=== PATIENT | female | born 1930 | race Caucasian/White ===

== ENCOUNTER 2016-10-01 09:16 | Inpatient (IN) | payer OTHER, MEDICARE ==
[~2016-10-01] VITALS: Ht 162.6 cm; Wt 69.2 kg
--- NOTE | 2016-10-01 10:14 | DIAGNOSTIC IMAGING REPORT ---
PROCEDURE: XR CHEST 1 VIEW INDICATION: Possible CVA. TECHNIQUE: Portable AP view 0950 hours. Compared to chest x-ray on 11/07/2012. COMPARISON: None. FINDINGS: Allowing for overlying wires and electrodes, lungs are clear. Mild apical pleural scarring is unchanged. Heart and mediastinum are normal. Mild degenerative change of the thoracic spine. IMPRESSION: 1. Negative chest.
--- NOTE | 2016-10-01 10:22 | DIAGNOSTIC IMAGING REPORT ---
PROCEDURE: CT HEAD WITHOUT CONTRAST INDICATION: Code stroke. Confusion. TECHNIQUE: Noncontrast axial images with sagittal and coronal reformations. COMPARISON: None. FINDINGS: There are moderate old small vessel changes white matter signal hemispheres with a 1.8 cm old infarct in the right basal ganglia. There is no evidence an acute process or hemorrhage. There are marked calcifications of the right vertebral artery with moderate calcifications of the cavernous internal carotid arteries. Sinuses and mastoids are normal. IMPRESSION: 1. 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 2. Marked right vertebral and moderate carotid calcifications. 3. No evidence of acute process or hemorrhage. 4. Findings discussed with Dr. Swapnil Lombardo at [address] scans at this facility use dose modulation, iterative reconstruction, and/or weight-based dosing when appropriate to reduce radiation dose to as low as reasonably achievable.
--- NOTE | 2016-10-01 11:21 | ED ORDER SUMMARY ---
..... Patient: RAUDEL VICTORIA OrderSheet Formerly [facility] VisitID: [id number] [place] [address] 86y, F Registration Date/Time: 10/01/2016 ORDER SHEET Weight: 74.8 kg (measured) Allergies: Codeine, Novocaine/epedephrine, Sulfa Antibiotics GENERAL ORDERS: Chest 1V Urgent (09:10/01/2016 Rajeev Tristan) (Ack 9:36 LNations ER Tech1) (9:49 LNations ER Tech1) CT Head wo Cont Urgent (:10/01/2016 Rajeev Tristan) (9:33 RFay) Scrap Metal Collector (Continuous) (stroke) (:10/01/2016 Rajeev Tristan) (Ack 9:36 LNations ER Tech1) (9:48 LNations ER Tech1) Stroke Panel Stat (:10/01/2016 Rajeev Tristan) (Ack 9:36 LNations ER Tech1) (9:49 LNations ER Tech1) EKG - ER Stat (:10/01/2016 Rajeev Trsitan) (Ack 9:36 LNations ER Tech1) (9:48 LNations ER Tech1) POC Glucose (:10/01/2016 Rajeev Tristan) (Ack 9:36 LNations ER Tech1) (9:48 LNations ER Tech1) UA-Culture if indicated Urgent (:10/01/2016 Rajeev Tristan) (Ack 9:36 LNations ER Tech1) (10:37 HOShaughnessy R.N.) MEDICATION ORDERS: Aspirin [place] 300 mg (NOW) (11:29 10/01/2016 Rajeev Tristan) (11:45 HOShaughnessy R.N.) Aspirin PO 324 mg (NOW) (11:43 10/01/2016 HOShaughnessy R.N. verbal order read back to Rajeev Tristan) (11:44 HOShaughnessy R.N.) IV FLUIDS: IV Saline Lock (09:10/01/2016 Rajeev Tristan) (9:39 HOShaughnessy R.N.) Ceftriaxone IV 1 gm/50mL (NOW) (11:17 10/01/2016 Rajeev Tristan) (11:34 Daya Agarwal) ORDER SHEET NOTES: [Electronically signed by Jose Luis Monge R.N. (13:40 10/01/2016)] [Electronically signed by Swapnil Lombardo Dr. (22:37 10/04/2016)] [Electronically locked/signed by Jose Luis Monge R.N. (13:40 10/01/2016)]
--- NOTE | 2016-10-01 11:21 | ED NURSING NOTES ---
Clinical Report - Nurses [facility] [address] [place] [address] 10/01/2016 9:17 Patient: RAUDEL VICTORIA TRIAGE Triage time 0913 AM. Chief Complaint: WEAKNESS, IMPAIRED SPEECH and FACIAL DROOP. --09:22 Jose Luis Monge R.N. 09:19 10/01/16. BP: 180/68. HR: 95. RR: 16. O2 saturation: 95%. --09:22 Jose Luis Monge R.N. 09:39 10/01/16. BP: 149/80. HR: 90. RR: 14. O2 saturation: 97%. Temp: 98 F (oral). Pain level now: 0/10. --09:39 Jose Luis Monge R.N. Weight: 74.8 kg measured. --09:20 Jose Luis Monge R.N.. Height/Length: 62 inches Per Patient. BMI: 30.2. --13:38 Jose Luis Monge R.N. Medications Amlodipine Besy-Benazepril HCl Oral (Capsule 5-10 mg) 1 capsule, daily. Atorvastatin Calcium Oral 20 mg, daily. Losartan Potassium Oral (pt unsure of dose ). Metoprolol Tartrate Oral (Tablet 50 mg) 1-1/2 tablets, daily . --09:20 Jose Luis Monge R.N. Triamterene-HCTZ Oral (Tablet 37.5-25 mg) 1 tablet, daily . --09:20 Jose Luis Monge R.N. LORazepam Oral. --10:39 Jose Luis Monge R.N. CeleXA Oral. --10:39 Jose Luis Monge R.N. Allergies Codeine. Novocaine/epedephrine. Sulfa Antibiotics. --09:20 Jose Luis Monge R.N. History Arrived by EMS. Historian: EMS. This started last seen normal at 0300. Patient was last known well (0300 AM). ( Patient presents to the ED with symptoms of left sided weakness, left sided facial droop, and impaired speech.). She has had difficulty with speech, trouble walking and weakness. Treatment WIRE BRUSH MAKER: None. PAST MEDICAL HX: A single TIA. --:22 Jose Luis Monge R.N. NUTRITIONAL RISK ASSESSMENT: The nutritional risk assessment revealed no deficiencies. FUNCTIONAL ASSESSMENT: Functional assessment: no impairments noted. Functional assessment performed: independent with the activities of daily living; has aphasia- this communication barrier is a new problem; uses walker- this mobility impairment is an ongoing problem. LEARNING NEEDS ASSESSMENT: The learning needs assessment revealed no barriers. FALL RISK ASSESSMENT: Fall risk assessment completed. Risk factors identified include dizziness and patient age greater than 65 years and impairment of mobility and cognition. Fall interventions initiated. Side rails up x2. Brakes on Bed in low position. Patient visible from nurses' station and identified as a fall risk by chart flagged. Call light in reach of patient. Instructed not to get up without assistance. SKIN INTEGRITY ASSESSMENT: Skin integrity risk assessment completed. No skin integrity risk identified. --09:41 Jose Luis Monge R.N. PROBLEMS: UTI - Urinary Tract Infection. Anxiety Reaction. LNMP - Last Normal Menstrual Period. Hypercholesterolemia. Cancer. Intervertebral Disc Disease. COPD - Chronic Obstructive Pulmonary Disease. Sleep Apnea. GI Bleeding. Arthritis. Back Pain. TIA - Transient Ischemic Attack. Hypertension. Immunizations. --:20 Jose Luis Monge R.N. ADDITIONAL SURGERIES: Appendectomy. Carotid Surgery. Hysterectomy. Knee Surgery. Lung Surgery. Mastoidectomy. Tonsillectomy. --:20 Jose Luis Monge R.N. Interventions Finger stick glucose: 120 mg/dL. --:22 Jose Luis Monge R.N. ID band on patient. --09:39 Jose Luis Monge R.N. PHYSICAL ASSESSMENT To room via stretcher. GENERAL / NEURO / PSYCH: Oriented X 4. Appears anxious. [place] Coma Scale: 15- eyes open spontaneously (4); best verbal response- oriented x 4 (5); best motor response- obeys commands (6). Expressive aphasia. Mood/affect normal. Moves all extremities equally. No motor deficit. No sensory deficit. HEENT: No facial asymmetry noted. Pupils equal, round and reactive to light. EOM intact. Pharynx within normal limits. RESPIRATORY: Breath sounds within normal limits. Respirations not labored. CVS: Normal sinus rhythm noted. Capillary refill less than 2 seconds. SKIN: Skin is intact, warm and dry. --09:41 Jose Luis Monge R.N. Baseline functional status: usually alert, oriented x4 and cooperative. Verbal response: usually clear and appropriate. Motor response: usually steady gait and moves all extremities equally --09:42 Jose Luis Monge R.N. GENERAL / NEURO / PSYCH: NIH Stroke Scale: score 1. Performed at 09:42. Level of Consciousness: alert (0). LOC Questions: both (0). LOC Commands: both (0). Best gaze: normal (0). Visual field loss: none (0). Facial palsy: normal (0). Motor arm: no drift right arm (0) and no drift left arm (0). Motor leg: no drift right leg (0) and no drift left leg (0). Limb ataxia: none (0). Sensory loss: none (0). Aphasia: mild to moderate (1). Dysarthria: normal (0). Extinction and inattention: none (0). --09:42 Jose Luis Monge R.N. GENERAL / NEURO / PSYCH: Awake. Oriented X 4. Alert. Appears in no acute distress. [place] Coma Scale: 15- eyes open spontaneously (4); best verbal response- oriented x 4 (5); best motor response- obeys commands (6). Speech normal. Mood/affect normal. Moves all extremities equally. No motor deficit. No sensory deficit. NIH Stroke Scale: score 2. Level of Consciousness: alert (0). LOC Questions: both (0). LOC Commands: both (0). Best gaze: normal (0). Visual field loss: partial hemianopsia (1). Facial palsy: normal (0). Motor arm: no drift right arm (0) and no drift left arm (0). Motor leg: no drift right leg (0) and no drift left leg (0). Limb ataxia: none (0). Sensory loss: none (0). Aphasia: mild to moderate (1). Dysarthria: normal (0). Extinction and inattention: none (0). --11:47 Jose Luis Monge R.N. GENERAL / NEURO / PSYCH: Awake. Oriented X 4. Alert. Appears in no acute distress. Speech normal. Mood/affect normal. NIH Stroke Scale: score 1. Level of Consciousness: alert (0). LOC Questions: both (0). LOC Commands: both (0). Best gaze: normal (0). Visual field loss: none (0). Facial palsy: normal (0). Motor arm: no drift right arm (0) and no drift left arm (0). Motor leg: no drift right leg (0) and no drift left leg (0). Limb ataxia: none (0). Sensory loss: none (0). Aphasia: mild to moderate (1). Dysarthria: normal (0). Extinction and inattention: none (0). --13:14 Jose Luis Monge R.N. GENERAL / NEURO / PSYCH: Moves all extremities equally. No motor deficit. No sensory deficit. --13:14 Jose Luis Monge R.N. NURSING PROGRESS NOTES Patient transported to CT by stretcher with tech. ([id number]). --09:22 Jose Luis Monge R.N. 09:38 10/01/2016 Site #1 started via IV in the left forearm with an 18g angiocath; one attempt. Blood drawn: rainbow set. Saline lock flushed with saline. --09:39 Jose Luis Monge R.N. EKG time: (0943). EKG was ordered, performed by a tech and shown to the ED physician. --09:50 Niru Hernández ER Tech1 Finger stick glucose: 97; ordered; performed. --09:50 Niru Hernández ER Tech1 ( assisted pt. to restroom with walker. Pt. able to ambulate with assistance.). --11:18 Niru Hernández ER Tech1 11:34 10/01/2016 Started 1 gm of Ceftriaxone IVPB in bag #1 50 mL; at 100 mL/hr over 30 minute(s) via site #1 via IV pump. Allergies verified and confirmed 5 rights. IV patency established. IV site checked: no pain, redness, or swelling. IV flushed thoroughly pre- and post-medication administration. --11:34 Jose Luis Monge R.N. 11:35 10/01/16. BP: 132/68. HR: 87. RR: 16. O2 saturation: 99%. Temp: 98.6 F. Pain level now 0/10. --11:37 Jose Luis Monge R.N. The plan of care for this patient has been created. Monitoring of patient in place. Swallow screen: no dysphagia risk factors noted, patient sat at 90 degrees, 30 mL water given and a cracker was given. Passed swallow screen: no problems observed. Head of bed elevated. Reassurance given. The patient is calm and resting quietly. Overall patient status is improved- she states feels better. GENERAL / NEURO / PSYCH: Alert. Oriented X 4. Affect appears normal. HEENT: Pupils equal, round and reactive to light. RESPIRATORY: No respiratory distress. SKIN: Skin is warm and dry. Call light placed in reach. Side rails up x 1. Bed placed in lowest position. Brakes of bed on. --11:37 Jose Luis Monge R.N. 11:44 10/01/2016 Aspirin PO Tablets 324 mg given. Allergies verified and confirmed 5 rights. --11:44 Jose Luis Monge R.N. 11:45 10/01/2016 Aspirin [place] 300 mg (NOW) was refused by patient because of preference for a different route. Jose Luis Monge --11:45 Jose Luis Monge R.N. 13:39 10/01/2016 Ceftriaxone IVPB Discontinued: bag #1 completed. Total amount infused: 50 mL. IV patency established. IV site checked: no pain, redness, or swelling. IV flushed thoroughly. --13:39 Jose Luis Monge R.N. DISPOSITION / DISCHARGE Admitted. --13:13 Jose Luis Monge R.N. 13:13 10/01/16. BP: 114/77. HR: 95. RR: 16. O2 saturation: 100%. Temp: 98.5 F (oral). Pain level now: 0/10. --13:13 Jose Luis Monge R.N. The goals identified in the patient's plan of care were met. --13:13 Jose Luis Monge R.N. Locked/Released at 10/01/2016 13:40 by Jose Luis Monge R.N.
--- NOTE | 2016-10-01 11:21 | ED ORDER SUMMARY ---
..... Patient: RAUDEL VICTORIA OrderSheet [facility] VisitID: [id number] [place] [address] 86y, F Registration Date/Time: 10/01/2016 ORDER SHEET Weight: 74.8 kg (measured) Allergies: Codeine, Novocaine/epedephrine, Sulfa Antibiotics GENERAL ORDERS: Chest 1V Urgent (09:10/01/2016 Rajeev Tristan) (Ack 9:36 LNations ER Tech1) (9:49 LNations ER Tech1) CT Head wo Cont Urgent (:10/01/2016 Rajeev Tristan) (9:33 RFay) Hourly Caregiver (Continuous) (stroke) (:10/01/2016 Rajeev Tristan) (Ack 9:36 LNations ER Tech1) (9:48 LNations ER Tech1) Stroke Panel Stat (:10/01/2016 Rajeev Tristan) (Ack 9:36 LNations ER Tech1) (9:49 LNations ER Tech1) EKG - ER Stat (:10/01/2016 Rajeev Tristan) (Ack 9:36 LNations ER Tech1) (9:48 LNations ER Tech1) POC Glucose (:10/01/2016 Rajeev Tristan) (Ack 9:36 LNations ER Tech1) (9:48 LNations ER Tech1) UA-Culture if indicated Urgent (:10/01/2016 Rajeev Tristan) (Ack 9:36 LNations ER Tech1) (10:37 HOShaughnessy R.N.) MEDICATION ORDERS: Aspirin [place] 300 mg (NOW) (11:29 10/01/2016 Rajeev Tristan) (11:45 HOShaughnessy R.N.) Aspirin PO 324 mg (NOW) (11:43 10/01/2016 HOShaughnessy R.N. verbal order read back to Rajeev Tristan) (11:44 HOShaughnessy R.N.) IV FLUIDS: IV Saline Lock (09:10/01/2016 Rajeev Tristan) (9:39 HOShaughnessy R.N.) Ceftriaxone IV 1 gm/50mL (NOW) (11:17 10/01/2016 Rajeev Tristan) (11:34 Daya Agarwal) ORDER SHEET NOTES: [Electronically signed by Jose Luis Monge R.N. (13:40 10/01/2016)] [Electronically signed by Swapnil Lombardo Dr. (22:37 10/04/2016)] [Electronically locked/signed by Jose Luis Monge R.N. (13:40 10/01/2016)]
--- NOTE | 2016-10-01 11:21 | ED CLINICAL REPORT ---
Clinical Report - Physicians/Mid Levels [facility] [address] [place] [address] 10/01/2016 9:17 Patient: RAUDEL VICTORIA Time Seen: 0915. Arrived- By ambulance. Historian- patient and EMS personnel. HISTORY OF PRESENT ILLNESS Chief Complaint: WEAKNESS, FACIAL DROOP and IMPAIRED SPEECH. This started today, patient was last known well (329) and is still present but is improving. It was abrupt in onset and has been constant but is not gone now. The patient has had weakness. She has had difficulty with speech. At its maximum deficit described as moderate. When seen in the E.D., deficit described as mild. The patient has had altered mental status. Usually is alert and oriented X3 and has normal mobility. Similar symptoms previously: None. Recent medical care: Not recently seen/assessed. REVIEW OF SYSTEMS All systems otherwise negative, except as recorded above. PAST HISTORY Stroke. SOCIAL HISTORY Never smoker. No alcohol use or drug use. Is a local resident. ADDITIONAL NOTES The nursing notes have been reviewed. PHYSICAL EXAM Vital Signs: 10/01/2016 09:19 BP: 180/68. HR: 95. RR: 16. O2 saturation: 95%. Hypertensive. Oxygen saturation normal. Appearance: Alert. No acute distress. Head: Head atraumatic. Eyes: Pupils equal, round and reactive to light. Pupillary exam: Right pupil 3mm, round and reactive to light directly and consensually and with accommodation. Left pupil: 3mm, round and reactive to light directly and consensually and with accommodation. ENT: Normal ENT inspection. Airway intact. Pharynx normal. Neck: Normal inspection. Neck supple. CVS: Normal heart rate and rhythm. Heart sounds normal. Pulses normal. Respiratory: No respiratory distress. Breath sounds normal. Abdomen: Soft and nontender. No organomegaly. Back: Normal inspection. Skin: Skin warm and dry. Normal skin color. No rash. Normal skin turgor. Extremities: Extremities exhibit normal ROM. No lower extremity edema. Neuro: Alert. The patient is disoriented. Abnormal verbal response. Expressive aphasia. No dysphasia or dysarthria. Cranial nerve deficit present, as evidenced by a left facial droop. No abnormal finger-nose test. Normal gait. No motor deficit. No sensory deficit. LABS, X-RAYS, AND EKG EKG: No acute ischemia. Normal EKG. Normal sinus rhythm. Rate: 90. Normal MARK. First-degree atrioventricular block. Normal QRS complex. Normal axis. Normal ST and T waves, QT and QTc. The study has been interpreted contemporaneously by me. The study has been independently viewed by me. Artifact present. Chest X-ray: (PROCEDURE: XR CHEST 1 VIEW INDICATION: Possible CVA. TECHNIQUE: Portable AP view 0950 hours. Compared to chest x-ray on 11/07/2012. COMPARISON: None. FINDINGS: Allowing for overlying wires and electrodes, lungs are clear. Mild apical pleural scarring is unchanged. Heart and mediastinum are normal. Mild degenerative change of the thoracic spine. IMPRESSION: 1. Negative chest.). Views: PA. Technique: good. The X-rays were independently viewed by me and interpreted by the radiologist. The X-rays were discussed with the radiologist (via pacs). CT Head: (PROCEDURE: CT HEAD WITHOUT CONTRAST INDICATION: Code stroke. Confusion. TECHNIQUE: Noncontrast axial images with sagittal and coronal reformations. COMPARISON: None. FINDINGS: There are moderate old small vessel changes white matter signal hemispheres with a 1.8 cm old infarct in the right basal ganglia. There is no evidence an acute process or hemorrhage. There are marked calcifications of the right vertebral artery with moderate calcifications of the cavernous internal carotid arteries. Sinuses and mastoids are normal. IMPRESSION: 1. 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 2. Marked right vertebral and moderate carotid calcifications. 3. No evidence of acute process or hemorrhage.). Head CT performed without contrast. The study was independently viewed by me, interpreted by the radiologist and discussed with the radiologist. Laboratory Tests: UA-Culture if indicated: (KAYLAH: 10/01/2016 10:10) ( MsgRcvd 10/01/2016 10:53) Final results Test Result Flag Units (Reference) URINE COLOR YELLOW URINE APPEARANCE CLEAR URINE GLUCOSE NEGATIVE (NEGATIVE) URINE BILIRUBIN NEGATIVE (NEGATIVE) URINE KETONE NEGATIVE (NEGATIVE) URINE SPECIFIC GRAVITY 1.010 (1.010-1.030) URINE PH 6.0 (5.0-8.0) URINE PROTEIN NEGATIVE (NEGATIVE) URINE UROBILINOGEN 0.2 EU/dL (0.2-1.0) URINE NITRITE POSITIVE (NEGATIVE) URINE BLOOD NEGATIVE (NEGATIVE) URINE LEUK ESTERASE TRACE (NEGATIVE) URINE RBC 0-1 rbc/hpf (0-1) URINE WBC 3-5 wbc/hpf (0-1) URINE EPITHELIAL CELLS 1-3 EPI/hpf (0-5) URINE BACTERIA MANY (4+) (NONE SEEN) URINE COMMENT CULTURE INDICATED URINE CULTURES ARE SET-UP BASED ON THE FOLLOWING CRITERIA:POSITIVE NITRITEPOSITIVE LEUKOCYTE ESTERASEGREATER THAN 10 WHITE BLOOD CELLSMODERATE (2+) OR GREATER BACTERIA CBC w Diff: (KAYLAH: 10/01/2016 09:35) ( MsgRcvd 10/01/2016 09:45) Final results Test Result Flag Units (Reference) WHITE BLOOD COUNT 8.7 K/uL (4.5-11.5) RED BLOOD COUNT 4.34 M/uL (4.00-5.20) HEMOGLOBIN 12.7 gm/dL (12.0-16.0) HEMATOCRIT 38.2 % (36.0-46.0) MEAN CELL VOLUME 88 fL (80-100) MEAN CORPUSCULAR HGB 29 pg (26-34) MEAN CORPUSCULAR HGB CONC 33 g/dL (31-37) RED CELL DISTRIBUTION WIDTH 13.9 % (11.6-14.8) PLATELET COUNT 268 K/uL (150-400) NEUTROPHIL % 81.5 H % (50-75) LYMPH % 11.8 L % (25-40) MONO % 5.3 % (3-14) EOSINOPHIL % 1.1 % (0-4) BASOPHIL % 0.3 % (0-2) PT with INR: (KAYLAH: 10/01/2016 09:35) ( MsgRcvd 10/01/2016 09:59) Final results Test Result Flag Units (Reference) INR 0.9 (0.8-1.2) Low Intensity Therapy: INR 1.5-2.0 PT range 18.5-23.1Mod.Intensity Therapy: INR 2.0-3.0 PT range 23.1-31.5High Intensity Therapy: INR 2.5-3.5 PT range 27.4-35.5High Intensity Therapy 2: INR 3.0-4.0 PT range 31.5-39.3 APTT 30 SECONDS (24-34) FIBRINOGEN 427 mg/dL (193-455) D-DIMER QUANTITATIVE 1.24 H ug/mLFEU (0.27-0.52) The primary value of this quantitative assay relates toits negative predictive value (i.e. exclusion) of pulmonaryembolism/deep vein thrombosis/DIC.Elevated levels of d-dimer may also occur with:, age, cancer, inflammation, liver disease,post-op, infection, hematoma, coronary disease, peripheralarteriopathy, bleeding disorders and thrombolytic treatment.Results should be correlated with other clinical andradiological data.Testing Methodology: Latex Immunoassay CMP: (KAYLAH: 10/01/2016 09:35) ( MsgRcvd 10/01/2016 10:07) Final results Test Result Flag Units (Reference) GLUCOSE 121 H mg/dL (70-110) BUN 12 mg/dL (7-18) CREATININE 0.7 mg/dL (0.6-1.3) Estimated GFR >60 mL/min Estimated GFR- >60 mL/min Note: Persistent reduction over 3 months in eGFR<60 mL/min/1.73 m2 defines CKD. Patients with eGFR values>=60 mL/min/1.73 m2 may also have CKD if evidence ofpersistent proteinuria. Additional information may be foundat www.kidney.org. SODIUM 134 L mmol/L (136-145) POTASSIUM 3.5 mmol/L (3.5-5.1) CHLORIDE 96 L mmol/L (98-107) CARBON DIOXIDE 28 mmol/L (21-32) CALCIUM 9.3 mg/dL (8.5-10.1) TOTAL PROTEIN 7.3 g/dL (6.4-8.2) ALBUMIN 4.0 g/dL (3.3-5.0) BILIRUBIN, TOTAL 0.4 mg/dL (0.0-1.0) ALKALINE PHOSPHATASE 88 U/L (46-116) AST (SGOT) 23 U/L (15-37) ALT (SGPT) 31 U/L (12-78) . PROGRESS AND PROCEDURES Course of Care: Patient with code stroke for confusion. Patient normal yesterday. Woke up this morning at 3:30am with symptoms. Could not call because she did not know how to use a phone when normally dose. Left sided facial droop noted. By EMS. Patient taken to CT scan immediately. No bleeds on CT prelim read. Does not appear patient is TPA candidate based on time and age. family at bedside and noted that the patient is confused and this is not her baseline. No other abnormalities noted on exam. Patient has a NIH stroke scale of 3. Other workup was noted significantly for urinary tract infection. Ceftriaxone is ordered. Patient does not have any signs of sepsis at this time. Patient is resting in bed in no acute distress. Spoke with Dr. Ellis who will be the accepting doctor. Patient to be admitted for stroke workup/evaluation. Do not feel patient needs ICU at this time. Symptoms of NIH stroke scale are unchanged and relatively low. Transition orders placed. Patient is awaiting bed placement. Discussed with patient and family workup, diagnosis, and plan of care. All questions answered. Family patient agreeable to the treatment and plan. Critical care performed (40 minutes). Time is exclusive of separately billable procedures. Time includes: direct patient care, patient reassessment, coordination of patient care, interpretation of data (laboratory data), review of patient's medical records, medical consultation, family consultation regarding treatment decisions and documentation of patient care. Disposition: Observation in Acute Care. (Electronically signed by Swapnil Lombardo Dr. 10/04/2016 22:37)
[2016-10-01 14:35] VITALS: BP 145/56
--- NOTE | 2016-10-01 15:54 | HISTORY AND PHYSICAL ---
ADMITTED: 10/01/2016 CHIEF COMPLAINT: 1. Confusion HISTORY OF PRESENT ILLNESS: An 86-year-old female brought to [facility] because of weakness, impaired speech and facial droop. She was last known to be well at 3:30 a.m. on the day of admission and presented by ambulance at 9:15 a.m. At the time of evaluation, the patient and family reported there had been some improvement, that the onset was abrupt, and it had been fairly constant. Initially, the facial droop and weakness seemed to resolve; the confusion seemed to remain, where she had difficulty forming words and finding correct words, and also difficulty with short-term memory. The patient reports she has had several episodes like this before, associated with urinary tract infections or stress or anxiety. History is obtained from the patient, and also from a daughter who filled out a history and physical questionnaire. MEDICAL/SURGICAL HISTORY: Remarkable for her lung cancer in 1999, TIA in 1999, carotid artery blockage in the , recurrent bladder infections, GI bleed in 2004, and low iron. Surgeries: Lobectomy in 1999. Left knee replacement in 2012, gastrointestinal bleed in 2004. Preventive care: Flu vaccine done in fall of 2015. MEDICATIONS: 1. Aspirin 1 p.o. daily. 2. Celexa 10 mg p.o. daily. 3. Metoprolol 75 mg daily. 4. Lorazepam 0.5 mg b.i.d. 5. Probiotic once daily. 6. Colace 100 mg b.i.d. 7. Losartan 50 mg p.o. daily. 8. Multivitamins daily. 9. Lipitor 20 mg p.o. daily. ALLERGIES: 1. SULFA. 2. CODEINE. SOCIAL HISTORY: , single female. Worked in nursing, now retired. Lives in her own home. Smokin to 1-1/2 packs per day. Alcohol: None. Drug use: None. FAMILY HISTORY: Father at age 82 of cancer, unknown type. Mother of heart problems, also at 82. One sibling and had problems with depression. One child has had bypass surgery, and another child has had a pacemaker and defibrillator placement. CODE STATUS: THE PATIENT HAS A LIVING WILL AND REQUESTS DO NOT RESUSCITATE STATUS. 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 REVIEW OF SYSTEMS: General: Negative for weight change. Positive for fatigue, pain and weakness. Negative for fever. Skin: Denies rashes, dryness or itching. Eyes: Negative for pain, dryness, redness, blurry vision, cataracts, vision loss, but does use corrective lenses. Ears: Denies pain, ringing or hearing loss. Nose: Denied bleeding, discharge, or sinus pain. Denies mouth or throat problems. Lungs: Positive for shortness of breath and cough. Denies hemoptysis, pneumonia, wheezing, asthma, COPD, or pleuritic pain. Cardiac: Denies chest pain, palpitations, high or low blood pressure, muscle pain with walking, heart murmur, but positive for shortness of breath with exertion and ankle swelling. Urinary: Positive for frequency and incontinence. Negative for hematuria or pyuria. Gastrointestinal: Positive for loss of appetite. Negative for nausea, vomiting, heartburn, reflux, melena, hematochezia, diarrhea, or constipation. Joints: Positive for stiffness, pain and backaches. Neurologic: Positive for confusion. Denies fainting, balance problems, seizures, tremors, headaches, or paralysis. Endocrine: Denies diabetes, thyroid problems, excessive thirst or urination. Psychological: Positive for depression, anxiety and loss of interest in enjoyable events. Denies hallucinations or difficulty sleeping. PHYSICAL EXAMINATION: GENERAL: Well-developed, well-nourished, elderly female in no acute distress. VITAL SIGNS: Blood pressure 180/68, heart rate 95, respirations 16, SaO2 95%. HEENT: Clear. NECK: Supple, without adenopathy or thyromegaly. CHEST: Clear to auscultation and percussion. HEART: Regular rate and rhythm without murmur. ABDOMEN: Positive bowel sounds. Soft, nontender, without hepatosplenomegaly or masses. BACK: Straight, without CVA tenderness. EXTREMITIES: Without cyanosis, clubbing, or edema. NEUROLOGIC: Cranial nerves II-XII grossly intact and symmetric. No facial droop is noted at the time of my evaluation. Speech pattern is normal. The patient is able to recall where she is and is oriented to hospital, the date, the location, but she states she has difficulty remembering the events of the last few days. LAB/IMAGING: Urinalysis positive for nitrites, leukocyte esterase, with 4+ bacteria. WBC 8.7, hemoglobin 12.7, hematocrit 38.2, platelets 268. INR 0.9. Fibrinogen 427. D -dimer 1.24. Glucose 121, BUN 12, creatinine 0.7, sodium 134, potassium 3.5, chloride 96, bicarbonate 28, calcium 9.3, total protein 7.3, albumin 4.0, total bilirubin 0.4, alkaline phosphatase 88, AST 23, ALT 31. 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 No evidence of acute process or hemorrhage. Chest x-ray is obtained and is benign. teletypesetter monitor shows normal sinus rhythm. IMPRESSION: 1. Confusional episode, etiology unclear. Question transient ischemic attack versus cerebrovascular accident versus confusion associated with urinary tract infection 2. Anxiety disorder 3. Urinary tract infection 4. History of lung cancer 5. History of carotid artery stenosis 6. History of transient ischemic attack 7. Hypertension 8. Hyperlipidemia PLAN: Admit to [facility] for monitoring and treatment of urinary tract infection. The patient was initially evaluated in the ED on stroke protocol, but because of the length of time between initial event and presentation, thrombolytic agents were not used.
[2016-10-01] MEDS ORDERED: CELEXA10 M1 PO (17:58)
[2016-10-01] MEDS ORDERED: ATIVAN0.5 MG PO (18:00)
[2016-10-01] MEDS ORDERED: QVAR80 MCG IN (18:01)
[2016-10-01] MEDS ORDERED: ALEVE220 MG PO (18:03)
[2016-10-01] MEDS ORDERED: AMLODIPINE BESY10 MG PO (18:03)
[2016-10-01] MEDS ORDERED: COLACE100 MG PO (18:03)
[2016-10-01] MEDS ORDERED: ATORVASTATIN CA20 MG PO (18:04)
[2016-10-01] MEDS ORDERED: TOPROL XL50 MG PO (18:04)
[2016-10-01] MEDS ORDERED: LOSARTAN POTASS50 MG PO (18:05)
[2016-10-01] MEDS ORDERED: MAXZIDE-25 PO (18:05)
[2016-10-01] MEDS ORDERED: ASPIRIN ADULT L81 MG PO (18:07)
[2016-10-01] MEDS ORDERED: MIRALAX EQUIVAL17 GM PO (18:08)
[2016-10-01] MEDS ORDERED: MULTIPLE VITAMIN PO (18:12)
[2016-10-01] MEDS ORDERED: VITAMIN C500 M1 PO (18:13)
[2016-10-01] MEDS ORDERED: VITAMIN D-31000 UNIT PO (18:14)
[2016-10-01] MEDS ORDERED: CALCIUM + D PO (18:14)
[2016-10-01] MEDS ORDERED: CRANBERRY125 MG PO (18:14)
[2016-10-01 18:26] VITALS: BP 140/59
[2016-10-01 21:48] VITALS: BP 123/49
[2016-10-02 02:06] VITALS: BP 126/61
[2016-10-02 06:31] VITALS: BP 134/57
[2016-10-02 10:45] VITALS: BP 113/40
[2016-10-02 14:44] VITALS: BP 113/42
--- NOTE | 2016-10-02 15:13 | DIAGNOSTIC IMAGING REPORT ---
PROCEDURE: US BILATERAL CAROTID DOPPLER INDICATION: Confusion. History of carotid occlusion. TECHNIQUE: Color Doppler duplex imaging of the carotid and vertebral vessels. COMPARISON: None. FINDINGS: Right common carotid artery peak systolic velocity 73 cm/second (sub total occlusion). Right internal carotid artery: Occluded. cm/second. Right external carotid artery peak systolic velocity 49 cm/second. Right adblzxwv-ip-apdsep carotid artery ratio 0.0 Right vertebral artery peak systolic velocity 53 cm/second antegrade. Left common carotid artery peak systolic velocity 104 cm/second. Left internal carotid artery peak systolic velocity 151 cm/second. Left external carotid artery peak systolic velocity 371 cm/second. Left cnlbhnnz-pr-xyojlx carotid artery ratio 1.5 Left vertebral artery peak systolic velocity 58 cm/second antegrade. IMPRESSION: 1. Marked calcified atheromatous changes of the right carotid bifurcation. 2. 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 3. Sub total occlusion of the distal right common carotid artery with continued flow into the right external carotid artery. 4. Marked calcified atheromatous changes of the left carotid bifurcation. 5. There is a 50 - 69% stenosis of the left internal carotid artery. 6. There is a 50 - 99% stenosis of the left external carotid artery. 7. Findings discussed with Dr. Siegel. Velocity criteria are extrapolated from diameter data as defined by the Society of Radiologists in Ultrasound Consensus Conference, Radiology 2003; 229; 340-346.
--- NOTE | 2016-10-02 15:13 | DIAGNOSTIC IMAGING REPORT ---
PROCEDURE: US BILATERAL CAROTID DOPPLER INDICATION: Confusion. History of carotid occlusion. TECHNIQUE: Color Doppler duplex imaging of the carotid and vertebral vessels. COMPARISON: None. FINDINGS: Right common carotid artery peak systolic velocity 73 cm/second (sub total occlusion). Right internal carotid artery: Occluded. cm/second. Right external carotid artery peak systolic velocity 49 cm/second. Right vcrepsnf-np-nnzsry carotid artery ratio 0.0 Right vertebral artery peak systolic velocity 53 cm/second antegrade. Left common carotid artery peak systolic velocity 104 cm/second. Left internal carotid artery peak systolic velocity 151 cm/second. Left external carotid artery peak systolic velocity 371 cm/second. Left yjzqwifr-xt-orgypd carotid artery ratio 1.5 Left vertebral artery peak systolic velocity 58 cm/second antegrade. IMPRESSION: 1. Marked calcified atheromatous changes of the right carotid bifurcation. 2. 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 3. Sub total occlusion of the distal right common carotid artery with continued flow into the right external carotid artery. 4. Marked calcified atheromatous changes of the left carotid bifurcation. 5. There is a 50 - 69% stenosis of the left internal carotid artery. 6. There is a 50 - 99% stenosis of the left external carotid artery. 7. Findings discussed with Dr. Siegel. Velocity criteria are extrapolated from diameter data as defined by the Society of Radiologists in Ultrasound Consensus Conference, Radiology 2003; 229; 340-346.
--- NOTE | 2016-10-02 16:04 | Discharge Summary ---
Discharge Summary Report Admit Date 10/01/16 Discharge Date 10/02/16 Admission Diagnosis 1. TIA 2. Carotid artery disease 3. Hypertension 4. Hypercholesterolemia 5. UTI 6. Generalized anxiety disorder Discharge Diagnosis 1. TIA 2. Carotid artery disease 3. Hypertension 4. Hypercholesterolemia 5. UTI 6. Generalized anxiety disorder 7. Hypomagnesemia Brief History The patient is a 86-year-old white female with a significant past medical history of carotid artery disease status post TIA, recurrent UTI, hypertension, generalized anxiety disorder, who presented to [facility] emergency department on the day of admission secondary to complaints of impaired speech and facial droop. Evaluation at [facility] emergency department was consistent with CVA/TIA. Secondary to the above, the patient was admitted by Dante Ellis M.D. for further evaluation and treatment. For other history present illness, past medical history, family history, social history, review of systems, and admission physical examination please see the patient's history and physical examination and ER visit note in the patient's medical record. Hospital Course The following problems and their management were noted during the patient's hospitalization: 1. TIA The patient presented with acute confusional episode with suspected TIA. Head CT was unremarkable. Carotid Doppler exam appears unchanged from previously exam. There was occlusion of the right right internal carotid artery, and a 50- 69% stenosis of the left internal carotid artery. This appears unchanged from previous examinations. The patient was placed on Plavix 75 mg by mouth daily. She'll follow-up with her PCP with possible vascular surgery evaluation vascular surgery in 3-5 days. 2. Carotid artery disease See above. Plavix 75 mg by mouth daily 3. Hypertension Well-controlled. Patient discharged on amlodipine 10 mg by mouth daily, Toprol- XL 75 mg by mouth daily, Cozaar 50 mg by mouth daily, and Maxzide 25 1 by mouth daily. Outpatient follow-up with PCP as noted above. Low-salt diet on discharge . 4. Hypercholesterolemia Patient discharged on Lipitor 20 mg by mouth daily. Outpatient follow up with PCP. 5. UTI Patient presented with findings of UTI. Discharge treatment Keflex 500 mg by mouth 3 times a day. Outpatient follow-up with PCP as noted above. PCP follow- up on urine C&S. 6. Generalized anxiety disorder Stable. See discharge instructions 7. Hypomagnesemia Patient noted to have findings of hypomagnesemia. Patient discharged on mag 64. Outpatient follow-up with PCP. See discharge instructions General Appearance Alert, Oriented X3, Cooperative, No acute distress Lungs Clear to auscultation, Normal air movement Cardiovascular Regular Rate, Normal S1, Normal S2 Abdomen Normal bowel sounds, Soft, No tenderness Neurological Normal speech, Strength at 5/5 X4 ext, Normal tone, Cranial nerves 3-12 NL Psych/Mental Status Mental status NL, Mood NL Lab/Imaging Laboratory Tests 10/02 0720 Chemistry Plasma Sodium (136 - 145 mmol/L) 138 Plasma Potassium (3.5 - 5.1 mmol/L) 3.4 Plasma Chloride (98 - 107 mmol/L) 104 CO2 (Enzymatic) (21 - 32 mmol/L) 28 BUN (7 - 18 mg/dL) 7 Creatinine (0.6 - 1.3 mg/dL) 0.6 Est GFR ( Amer) (mL/min) >60 Est GFR (Non-Af Amer) (mL/min) >60 Glucose (70 - 110 mg/dL) 129 Plasma Calcium (8.5 - 10.1 mg/dL) 8.3 Plasma Magnesium (1.8 - 2.4 mg/dL) 1.7 Total Bilirubin (0.0 - 1.0 mg/dL) 0.3 AST (15 - 37 U/L) 17 ALT (12 - 78 U/L) 24 Alkaline Phosphatase (46 - 116 U/L) 67 Total Protein (6.4 - 8.2 g/dL) 5.9 Albumin (3.3 - 5.0 g/dL) 3.0 Hematology WBC (4.5 - 11.5 K/uL) 5.7 RBC (4.00 - 5.20 M/uL) 3.83 Hgb (12.0 - 16.0 gm/dL) 11.2 Hct (36.0 - 46.0 %) 34.3 MCV (80 - 100 fL) 90 MCH (26 - 34 pg) 29 RDW (11.6 - 14.8 %) 13.9 Neut % (Auto) (50 - 75 %) 70.7 Lymph % (Auto) (25 - 40 %) 17.6 [place] % (Auto) (3 - 14 %) 9.2 Eos % (Auto) (0 - 4 %) 1.7 Baso % (Auto) (0 - 2 %) 0.8 Plt Count, EDTA (150 - 400 K/uL) 184 PUBS MCHC (31 - 37 g/dL) 33 CT Scan Head IMPRESSION: 1. 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 2. Marked right vertebral and moderate carotid calcifications. 3. No evidence of acute process or hemorrhage. 4. Findings discussed with Dr. Swapnil Lombardo at [address] scans at this facility use dose modulation, iterative reconstruction, and/or weight-based dosing when appropriate to reduce radiation dose to as low as reasonably achievable. Dictated by: CHATA AMATO MD D: LINDA;10/01/16 1021 Carotid Doppler and Ultrasound IMPRESSION: 1. Marked calcified atheromatous changes of the right carotid bifurcation. 2. 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 3. Sub total occlusion of the distal right common carotid artery with continued flow into the right external carotid artery. 4. Marked calcified atheromatous changes of the left carotid bifurcation. 5. There is a 50 - 69% stenosis of the left internal carotid artery. 6. There is a 50 - 99% stenosis of the left external carotid artery. 7. Findings discussed with Dr. Siegel. Velocity criteria are extrapolated from diameter data as defined by the Society of Radiologists in Ultrasound Consensus Conference, Radiology 2003; 229; 340-346. Dictated by: CHATA AMATO MD D: LINDA;10/02/16 1513 MRI Head Discharge Instructions/Meds For other recommendations regarding discharge diet, activity, followup, and discharge medications please see the patient's discharge instructions. Discharge condition: Fair, improved Greater than 30 min. was spent in the patient's discharge preparation including discharge interview and physical examination, progress note, discharge instructions, and discharge summary The patient was interviewed and examined on the day of discharge. E&M Codes Discharge: Inpt >30 min spent/[id number]
[2016-10-02] MEDS ORDERED: KEFLEX500 M1 PO (16:08)
[2016-10-02] MEDS ORDERED: PLAVIX75 MG PO (16:08)
--- NOTE | 2016-10-02 16:10 | Provider's Discharge Care Plan ---
Problem, Goal, Plan Problem List 1. TIA (transient ischemic attack) Goals: Improve disease control, Improve function, Prevent disease progress Instructions: Follow up as directed, Take meds as directed, follow-up for echocardiogram as scheduled. 2. UTI (urinary tract infection) Goals: Improve disease control, Improve function, Prevent disease progress Instructions: Follow up as directed, Take meds as directed, follow-up for repeat urine C&S 2 days after completion of antimicrobials with your family physician 3. Hypomagnesemia Goals: Improve disease control, Prevent disease progress Instructions: Follow up as directed, Take meds as directed 4. Nicotine dependence Goals: Improve disease control, Improve function, Improved health/wellness, Prevent disease progress Instructions: Follow up as directed, Take meds as directed, Stop smoking
[2016-10-02] MEDS ORDERED: MAG6464 MG PO (16:12)
--- NOTE | 2016-10-04 22:37 | ED MAR SUMMARY ---
..... Medication Administration Record [facility] [address] [place] [address] Patient: RAUDEL VICTORIA Visit ID: [id number] 86y, F Weight: 74.8 kg Height/Length: 62 in BMI: 30.2 ALLERGIES: Codeine, Novocaine/epedephrine, Sulfa Antibiotics Start 11:34 10/01/2016 Jose Luis Monge R.N., Stop 13:39 10/01/2016 Jose Luis Monge R.N. Medication Administered: CEFTRIAXONE [IVPB], Dose: 1 gm IVPB over 30 minute(s), Rate: 100 mL/hr, Dispensed: 50 mL bag, Site: #1 left forearm. Medication Ordered: Ceftriaxone IV 1 gm/50mL (NOW). Given 11:44 10/01/2016 Jose Luis Monge R.N. Medication Administered: ASPIRIN [PO], Dose: 324 mg Tablets PO. Medication Ordered: Aspirin PO 324 mg (NOW).
--- NOTE | 2016-10-04 22:37 | ED MED RECONCILIATION SUMMARY ---
Patient: RAUDEL VICTORIA Medication Reconciliation Report [facility] VisitID: [id number] [address] [place] [address] 86y, F Registration Date/Time: 10/01/2016 Weight: 74.8 kg Height/Length: 62 in. BMI: 30.2 ALLERGIES: Codeine, Novocaine/epedephrine, Sulfa Antibiotics The patient's Home Medications are listed below: THE FOLLOWING MEDICATIONS NEED TO BE RECONCILED: Amlodipine Besy-Benazepril HCl Oral (5-10 mg) 1 capsule, daily Atorvastatin Calcium Oral 20 mg, daily CeleXA Oral LORazepam Oral Losartan Potassium Oral, pt unsure of dose Metoprolol Tartrate Oral (50 mg) 1-1/2 tablets, daily Triamterene-HCTZ Oral (37.5-25 mg) 1 tablet, daily The source(s) of the original Home Medication information: Not obtained. The following Medications were given to the patient in the Emergency Department: Ceftriaxone [IVPB] IVPB bolus 0, then 1 gm 100 mL/hr, administered: 10/01/2016 11:34:00 AM Aspirin [PO] PO 324 mg, administered: 10/01/2016 11:44:00 AM The following Medications were prescribed to the patient: None.
--- NOTE | 2016-10-04 22:37 | ED MAR SUMMARY ---
..... Medication Administration Record [facility] [address] [place] [address] Patient: RAUDEL VICTORIA Visit ID: [id number] 86y, F Weight: 74.8 kg Height/Length: 62 in BMI: 30.2 ALLERGIES: Codeine, Novocaine/epedephrine, Sulfa Antibiotics Start 11:34 10/01/2016 Jose Luis Monge R.N., Stop 13:39 10/01/2016 Jose Luis Monge R.N. Medication Administered: CEFTRIAXONE [IVPB], Dose: 1 gm IVPB over 30 minute(s), Rate: 100 mL/hr, Dispensed: 50 mL bag, Site: #1 left forearm. Medication Ordered: Ceftriaxone IV 1 gm/50mL (NOW). Given 11:44 10/01/2016 Jose Luis Monge R.N. Medication Administered: ASPIRIN [PO], Dose: 324 mg Tablets PO. Medication Ordered: Aspirin PO 324 mg (NOW).
--- NOTE | 2016-10-04 22:37 | ED MED RECONCILIATION SUMMARY ---
Patient: RAUDEL VICTORIA Medication Reconciliation Report [facility] VisitID: [id number] [address] [place] [address] 86y, F Registration Date/Time: 10/01/2016 Weight: 74.8 kg Height/Length: 62 in. BMI: 30.2 ALLERGIES: Codeine, Novocaine/epedephrine, Sulfa Antibiotics The patient's Home Medications are listed below: THE FOLLOWING MEDICATIONS NEED TO BE RECONCILED: Amlodipine Besy-Benazepril HCl Oral (5-10 mg) 1 capsule, daily Atorvastatin Calcium Oral 20 mg, daily CeleXA Oral LORazepam Oral Losartan Potassium Oral, pt unsure of dose Metoprolol Tartrate Oral (50 mg) 1-1/2 tablets, daily Triamterene-HCTZ Oral (37.5-25 mg) 1 tablet, daily The source(s) of the original Home Medication information: Not obtained. The following Medications were given to the patient in the Emergency Department: Ceftriaxone [IVPB] IVPB bolus 0, then 1 gm 100 mL/hr, administered: 10/01/2016 11:34:00 AM Aspirin [PO] PO 324 mg, administered: 10/01/2016 11:44:00 AM The following Medications were prescribed to the patient: None.
== END 2016-10-02 18:45 | disposition home or self-care (01) | DRG 68 ==
LOC: ED SRH 09:16 → TRANS SRH 11:24 → ACUTE2 SRH 13:31
PROVIDERS: ADMIT Family Medicine
DX: I65.23 Occlusion and stenosis of bilateral carotid arteries (principal); N39.0 Urinary tract infection, site not specified; E83.42 Hypomagnesemia; E78.00 Pure hypercholesterolemia, unspecified; F41.1 Generalized anxiety disorder
CPT/HCPCS: 87203; 90004; 90074; 90098; 90100; 90148; 90469; 91556; 92720; 94001; 94050; 94060; 95059